=== PATIENT | female | born 1965 | race Caucasian/White ===

== ENCOUNTER 2017-03-14 09:08 | Day surgery (SDC) | payer MEDICAID ==
[2017-03-14] MEDS ORDERED: LIDOCAINE 2% MDV (20MG/ML) 20ML VIAL IV ONE (09:09)
[2017-03-14] MEDS ORDERED: PROPOFOL 10 MG/ML VIAL IV ONE (09:09)
--- NOTE | 2017-03-18 10:30 | Operative Note ---
DATE OF SURGERY: 03/14/2017 SURGEON: Edinson Bazan MD OPERATION: COLONOSCOPY. INDICATIONS: This is a 51-year-old female with average risk for colorectal cancer who presented for screening colonoscopy. POSTOPERATIVE DIAGNOSIS: Normal colon. ANESTHESIA: Sedation is per Anesthesia. Pulse oximetry was monitored throughout the procedure to maintain O2 saturation of 90% or greater. Supplemental oxygen was administered via nasal cannula. Cardiac and vital signs were monitored throughout the duration of the procedure, and they were stable. The procedure of colonoscopy and risks and alternatives of the procedure, including the risk of bleeding and perforation, among others, were explained to the patient who voiced understanding and agreed to have the procedure done. Physical examination was performed, and the patient was found stable for sedation. PROCEDURE: The patient was placed in the left lateral position. Sedation was initiated. A digital rectal exam was performed and showed some mild external hemorrhoids with no palpable rectal masses. An Olympus PCF-180AL colonoscope was then inserted into the rectum under direct visualization. It was advanced to the cecum without difficulty. The ileocecal valve and appendiceal orifice were identified and photographed. The colonic mucosa was carefully examined upon introduction of the colonoscope. There were no lesions noted. The ileocecal valve was intubated and terminal ileal mucosa was not intubated. The colonoscope was then withdrawn while carefully examining the colonic mucosal surfaces. No other lesions were noted. In the rectum, retroflexion was performed and it was normal. The colonoscope was then withdrawn and the procedure was terminated. The patient tolerated the procedure well without any immediate complications. She remained with stable vital signs and was transferred to the recovery room. RECOMMENDATIONS: 1. The patient should be on a high-fiber diet. 2. The patient is to have a repeat colonoscopy for screening in 10 years. Thank you for allowing me to participate in the care of your patient. CC: Cheli ENRIQUEZ
== END 2017-03-14 11:30 | disposition home or self-care (01) ==
LOC: HOP 09:08
PROVIDERS: ATTEND Internal Medicine Gastroenterology
DX: Z12.11 Encounter for screening for malignant neoplasm of colon (principal)
CPT/HCPCS: 00810; G0121

== ENCOUNTER 2018-05-12 19:53 | Emergency (ER) | payer MEDICAID ==
--- NOTE | 2018-05-12 20:22 | Emergency Department Record ---
History of Present Illness - General Chief Complaint: Dizziness Stated Complaint: DIZZY,NAUSEA,WEAK Time Seen by Provider: 05/12/18 20:17 Source: Patient Mode of Arrival: Ambulatory Limitations: No limitations - History of Present Illness Initial Comments: 52 yo female presents to ED for evaluation of vertigo that began approximately 4 hours ago while at physical therapy, reports that nausea and vomiting began shortly after her vertigo symptoms began. Patient reports a history of similar symptoms previously, however has never been evaluated for her symptoms previously. Patient denies fevers, chills, or abdominal pain symptoms. Patient denies health problems at her baseline. MD Complaint: Dizziness Onset/Timin -: Hour(s) Timing: Sudden onset Description: Nausea History of Same: Yes History of Trauma: No Severity: Moderate Improves With: Rest Worsens With: Movement, Exertion Associated Symptoms: Weakness - Edon Coma Scale Eye Response: (4) Open spontaneously Motor Response: (6) Obeys commands Verbal Response: (5) Oriented Otilio Total: 15 - Symptoms of Stroke Baseline State: Baseline State - Related Data Previous Rx's Medication Instructions Recorded Meclizine HCl [Antivert] 25 mg PO Q8H PRN #15 tablet 05/12/18 Ondansetron [Zofran Odt] 4 mg PO Q8H PRN #15 tab.rapdis 05/12/18 Allergies Allergy/AdvReac Type Severity Reaction Status Date / Time Sulfa (Sulfonamide Allergy Intermediate RASH Verified 05/12/18 20:59 Antibiotics) sulfamethoxazole Allergy Intermediate RASH Verified 05/12/18 20:59 [From Bactrim] trimethoprim [From Bactrim] Allergy Intermediate RASH Verified 05/12/18 20:59 cephalexin monohydrate Allergy Unknown PT UNSURE Verified 05/12/18 20:59 [From Keflex] OF REACTION ciprofloxacin [From Cipro] Allergy Unknown PT UNSURE Verified 05/12/18 20:59 OF REACTION ciprofloxacin HCl Allergy Unknown PT UNSURE Verified 05/12/18 20:59 [From Cipro] OF REACTION Travel Screening - Travel/Exposure Within Last 30 Days Have you traveled within the last 30 days?: No - Travel Symptoms Symptom Screening: Fatigue, Vomiting Review of Systems Constitutional: Denies: Chills, Fever, Malaise, Night sweats Eyes: Denies: Eye discharge, Eye pain ENT: Denies: Congestion, Ear pain Respiratory: Denies: Cough, Dyspnea Cardiovascular: Denies: Chest pain, Dyspnea on exertion Endocrine: Denies: Fatigue, Heat or cold intolerance Gastrointestinal: Reports: Nausea, Vomiting Genitourinary: Denies: Incontinence, Retention Musculoskeletal: Denies: Arthralgia, Back pain Skin: Denies: Bruising, Change in color Neurological: Reports: Vertigo. 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 - GI Hx GI Disorders: No - Hx Genitourinary Disorders: Yes Hx UTI: Yes (2014) Comment:: uterine ablation 2009 - ENDOCRINE Hx Endocrine Disorders: No - MUSCULOSKELETAL Hx Arthritis: Yes (right hand and ankle, and chest) - PSYCH Hx Psych Problems: Yes Hx Anxiety: Yes (2003, no treatment currently) - HEMATOLOGY/ONCOLOGY Hx Hematology/Oncology Disorders: No Family Medical History Any Significant Family History?: Yes Hx Cancer: Grandparents *Cancer Comment: grandfather-lung cancer (maternal) Hx Heart Disease: Father, Grandparents *Heart Comment: heart attacks and stents Physical Exam - General General Appearance: Alert, Oriented x3, Cooperative, Mild distress Limitations: No limitations - Head Head exam: Atraumatic, Normocephalic, Normal inspection Head exam detail: negative: Abrasion, Contusion, Pedroza's sign, General tenderness, Hematoma, Laceration - Eye Eye exam: Normal appearance, Nystagmus (Horizontal nystagmus fast beat to the left, no vertical nystagnus noted on examination.). negative: Conjunctival injection, Periorbital swelling, Periorbital tenderness, Scleral icterus - ENT Ear exam: negative: Auricular hematoma, Auricular trauma Nasal Exam: negative: Active bleeding, Discharge, Dried blood, Foreign body Mouth exam: negative: Drooling, Laceration, Muffled voice, Tongue elevation - Neck Neck exam: Normal inspection. negative: Meningismus, Tenderness - Respiratory Respiratory exam: Normal lung sounds bilaterally. negative: Rales, Respiratory distress, Rhonchi, Stridor - Cardiovascular Cardiovascular Exam: Regular rate, Normal rhythm, Normal heart sounds - GI/Abdominal GI/Abdominal exam: Soft. negative: Rebound, Rigid, Tenderness - Rectal Rectal exam: Deferred - exam: Deferred - Extremities Extremities exam: Normal inspection. negative: Pedal edema, Tenderness - Back Back exam: Denies: CVA tenderness (R), CVA tenderness (L) - Neurological Neurological exam: Alert, Oriented X3. negative: Motor sensory deficit - Psychiatric Psychiatric exam: Normal affect, Normal mood - Skin Skin exam: Normal color. negative: Abrasion Type of lesion: negative: abrasion Course Vital Signs 05/12/18 20:08 Temperature 97.7 F Pulse Rate [ 86 Pulse Ox Probe] Respiratory 20 Rate Blood Pressure 144/84 [Left Arm] Pulse Ox 98 - Reevaluation(s) Reevaluation #1: 05/12/18 20:31 EKG: NSR 82 Normal axis, normal intervals No acute ST-T changes are present. Reevaluation #2: 05/12/18 21:17 Laboratory studies were reviewed and are grossly unremarkable for an acute process. Reevaluation #3: 05/12/18 21:20 CT Brain: Hypodensities bilaterally to the peripheral sub-cortical white matter unchanged from previous (08/02/10). Findings are c/w small vessel ischemic changes Reevaluation #4: 05/12/18 22:49 Patient reassessed, reports improvement in her symptoms. Patient ambulated with steady gait, no evidence for cerebellar dysfunction/ ischemia on examination. Patient appears stable for discharge with antivert and zofran as directed for her symptoms. Medical Decision Making - Lab Data Result diagrams: 05/12/18 20:50 05/12/18 20:50 Disposition Disposition: Discharge Clinical Impression: Vertigo Disposition: Home, Self-Care Condition: (2) Stable Instructions: Vertigo (ED) Additional Instructions: Return to ED if your symptoms worsen or if you have any concerns. Antivert, Zofran as directed. Follow-up with your family doctor in 3-5 days as directed. Prescriptions: Meclizine HCl [Antivert] 25 mg PO Q8H PRN #15 tablet PRN Reason: Dizziness Ondansetron [Zofran Odt] 4 mg PO Q8H PRN #15 tab.rapdis PRN Reason: Nausea/Vomiting Forms: Patient Portal Access Time of Disposition: 22:52 Quality - Quality Measures Quality Measures: N/A - Blood Pressure Screening Does Patient Have Any of the Following: No Blood Pressure Classification: Pre-Hypertensive BP Reading Systolic Measurement: 145 Diastolic Measurement: 84 Screening for High Blood Pressure: < Pre-Hypertensive BP, F/U Documented > [ [id number]] Pre-Hypertensive Follow-up Interventions: Referral to alternative/primary care provider.
[2018-05-12] MEDS: ONDANSETRON HCL IV 4 MG/2 ML VIAL IVP ONE (20:42)
[2018-05-12] MEDS: MECLIZINE 25 MG TABLET PO ONE ×2 (20:42→23:03)
[2018-05-12] MEDS: 0.9 % SODIUM CHLORIDE 1000ML 1,000 ML IV SCH (20:42)
[2018-05-12 20:55] LABS: BASO % 0.4 % (0-6); EOS % 0.5 % (0-6); GRAN % 79.4 % (47-80); HEMATOCRIT 42.4 % (35.0-47.0); HEMOGLOBIN 13.9 gm/dl (11.6-16.0); LYMPH % 15.5 % (16-45); MEAN CELL VOLUME 89.5 fl (81-97); MEAN CORPUSCULAR HEMOGLOBIN 29.3 pg (27-33); MEAN CORPUSCULAR HGB CONC 32.8 g/dl (32-36); MONO % 4.2 % (0-9); PLATELET COUNT 212 K/uL (130-400); RED BLOOD COUNT 4.74 M/uL (3.80-5.40); RED CELL DISTRIBUTION WIDTH 12.9 % (11.5-14.5); WHITE BLOOD COUNT W/O DIFF 8.1 K/uL (4.2-12.2)
[2018-05-12 21:03] LABS: BLOOD UREA NITROGEN 20 mg/dL (6-20); CREATININE 0.8 mg/dL (0.5-0.9); EST GLOMERULAR FILTRATION RATE > 60 mL/min
[2018-05-12 21:06] LABS: GLUCOSE,RANDOM 144 mg/dL (74-109)
[2018-05-12 21:09] LABS: ALB/GLOB RATIO 1.2 (1.1-1.8); ALBUMIN 4.3 g/dL (4.0-5.0); ALKALINE PHOSPHATASE 82 U/L (45-87); ALT/SGPT 23 U/L (<33); AST/SGOT 33 U/L (10.0-35.0)
[2018-05-12] MEDS: DIAZEPAM (VALIUM) 5MG/ML **10ML VIAL IVP ONE (21:09)
[2018-05-12] MEDS: ONDANSETRON 4 MG ODT TABLET SL ONE (23:03)
== END 2018-05-12 23:13 | disposition home or self-care (01) ==
LOC: ER 19:53
DX: R42 Dizziness and giddiness (principal); R11.2 Nausea with vomiting, unspecified; R53.1 Weakness
CPT/HCPCS: 99284 ×2; 96374; 96375; 85025; 80053; 70450; 93005; 93010; J2405; J3360; J7030